=== PATIENT | female | born 1945 | race Caucasian/White ===

== ENCOUNTER 2022-10-10 08:28 | Emergency (ER) | payer MEDICARE, SELFPAY ==
[2022-10-10] VITALS (8 sets, daily range): BP systolic 123–175; BP diastolic 66–104; PULSE 62–89; RESP 16–20; TEMP 36.7–36.8; O2SAT 97–100; BMI 25.3
--- NOTE | 2022-10-10 | ECG_ITS ---
APPROVED REPORT Exam: Resting ECG HR:70 bpm ECG Measurements Heart Rate 70 AXES NV 124 P -9 QRSd 90 QRS 51 QT 407 T 63 QTc 428 Conclusion SINUS RHYTHM NORMAL ECG UNCONFIRMED REPORT Electronically signed by : Randall Barrientos MD 10/10/2022 13:57:56
--- NOTE | 2022-10-10 08:43 | PC.NURSE ---
Dr. King at bedside
--- NOTE | 2022-10-10 08:46 | PC.NURSE ---
Checking [employer] for flight check to ER.
--- NOTE | 2022-10-10 08:56 | HMH.EDGENADL ---
Discharge Plan Disposition Patient Disposition: Home, Self-Care Prescriptions Prescriptions: New ondansetron 4 mg tablet,disintegrating 4 mg PO Q6H PRN (Reason: nausea and vomiting) 5 Days Qty: 20 0RF Referrals Follow up/Referrals: Provider,Referral, MD [Primary Care Provider] - See instructions Activity Restrictions/Add. Instructions Additional Instructions/Restrictions: Your nausea vomiting and diarrhea is most likely from a viral cause. The lightheadedness you are describing which improved with IV fluids is most likely secondary dehydration from the viral cause. Please continue to keep yourself hydrated with glucose and sodium containing fluids like Gatorade or Powerade. The CAT scan of your head and your neck and the blood vessels in your head and your neck were unremarkable. Return with any recurrent or ongoing balance or neurologic concerns. Otherwise follow-up with primary care doctor as needed. Clinical Impressions Clinical Impression: Nausea vomiting and diarrhea, Orthostatic lightheadedness Discharge ED Provider: Julisa King General Adult HPI General Chief complaint: Dizziness Stated complaint: dizzy, vomiting Time Seen by Provider: 10/10/22 08:36 Mode of Arrival: Wheelchair Source of Information: Patient Limitations: No Limitations Description of Symptoms (Recalled from ER Triage Doc. by RN): pt to ed c/o dizziness and vomiting. pt states she woke up at approx 0600 this morning with symptoms. pt reports a past hx of vertigo and states this feels similar. History of Present Illness HPI narrative: 77-year-old female presenting with nausea vomiting diarrhea and lightheadedness. She described initially as dizziness and stated she had something similar when she lived in [place] that she was told was vertigo however she denies any changes in coordination vision or any rotary sensation today and describes it more as a lightheadedness. She states this occurred around the same time she had nausea vomiting and diarrhea. There is been no blood in her vomit or her stool. No melena. No significant abdominal pain chest pain shortness of breath fevers or any other concerns. She denies sick contacts. Related Data Previous Rx's Medication Instructions Recorded ondansetron 4 mg disintegrating 4 mg PO Q6H PRN nausea and 10/10/22 tablet vomiting 5 days #20 tabs Allergies Allergy/AdvReac Type Severity Reaction Status Date / Time No Known Allergies Allergy Verified 10/10/22 08:58 [facility] Disclaimer: The information contained in this section may have been updated after the patient was seen, as this information can be updated by other users. Social History Smoking Status: Never smoker alcohol intake: never current occupational status: other Travel in the last 8 weeks: None ROS Obtained: Yes All systems reviewed & no additional complaints except as documented Physical Exam General General appearance: alert Respiratory Respiratory exam: Present normal lung sounds bilaterally Cardiovascular Cardiovascular exam: Present regular rate; Absent tachycardia Abdominal Exam Abdominal exam: Present soft; Absent distention, tenderness, guarding, rebound or rigidity Neurological Exam Neurological exam: Present alert, oriented X3, CN II-XII intact, normal gait and other (Normal posterior circulation exam with finger-nose [id number] rapid alternating movements coordination is normal) Medical Decision Making Jadiel Inquiry Pt receiving controlled substance: No Jadiel was queried for this patient: No Vital Signs: 10/10/22 08:36 10/10/22 12:02 10/10/22 12:02 Temperature 98.2 F 98.0 F Temperature Source Oral Pulse Rate 78 Pulse Rate [Left Radial] 78 Respiratory Rate 19 16 Blood Pressure 123/73 Blood Pressure [Right Arm] 175/78 H Blood Pressure Mean [Right Arm] 110 02 Sat by Pulse Oximetry 99 Oxygen Delivery Method Room Air Room Air Room Air Lab Data Lab results
[2022-10-10 09:01] LABS: Basophils % 0.3 % (0.1-2.0); Eosinophils # 0.1 K/mm3 (0.0-0.4); Eosinophils % 1.6 % (0.1-12.0); Hematocrit 43.4 % (37.0-47.0); Hemoglobin 13.6 g/dL (12.2-16.2); Lymphocytes # 1.7 K/mm3 (0.7-4.5); Lymphocytes % 22.3 % (10-50); Mean Corpuscular HGB Conc 31.4 g/dL (31.8-35.4); Mean Corpuscular Hemoglobin 28.5 pg (27.0-31.2); Mean Corpuscular Volume 90.8 fl (81-99); Mean Platelet Volume 7.7 fl (7.4-10.4); Monocytes # 0.2 K/mm3 (0.1-1.0); Monocytes % 3.1 % (1.7-9.3); Neutrophils # 5.4 K/mm3 (1.8-7.8); Neutrophils % 72.7 % (37.0-80.0); Platelet Count 248 K/mm3 (142-424); Red Blood Count 4.78 M/mm3 (4.20-5.40); Red Cell Distribution Width 13.6 % (11.5-17.5); White Blood Count 7.4 K/mm3 (4.8-10.8)
[2022-10-10 09:06] LABS: Alanine Aminotransferase 17 U/L (12-78); Albumin/Globulin Ratio 1.1 (1.1-1.8); Alkaline Phosphatase 138 U/L (38-126); Anion Gap 11.3 mEq/L (5-15); Aspartate Amino Transferase 27 U/L (14-36); Bilirubin,Total 0.4 mg/dl (0.2-1.3); Blood Urea Nitrogen 15 mg/dl (7-17); Calcium 8.5 mg/dl (8.4-10.2); Carbon Dioxide 27 mmol/L (22.0-30.0); Chloride 107 mmol/L (98-107); Creatinine Clearance Estimated 48 mL/min (50-200); Estimated Glomerular Filt Rate 70 ml/min (>60); GFR (African American) 84 ML/MIN (>60); Globulin 3.6 g/dL (1.3-3.2); Glucose 115 mg/dl (74-100); Magnesium 1.9 mg/dl (1.6-2.3); Phosphorous 2.6 mg/dl (2.5-4.5); Potassium 3.3 mmoL/L (3.5-5.1); Sodium 142 mmol/L (136-145); Total Protein,Serum 7.6 g/dl (6.3-8.2)
--- NOTE | 2022-10-10 10:45 | CT_ITS ---
FINAL REPORT TECHNIQUE: Thin section axial CT with IV contrast supplemented with multiplanar reconstruction under CT angiogram protocol. 3-D reconstructions were performed. This study was performed with techniques to keep radiation doses as low as reasonably achievable (ALARA). Individualized dose reduction techniques using automated exposure control or adjustment of mA and/or kV according to the patient's size were employed. CLINICAL HISTORY: ataxia COMPARISON: None FINDINGS: The distal vertebral, basilar and distal internal carotid arteries have an unremarkable appearance. No aneurysm is seen. Major intracranial vessels are patent without significant stenosis. IMPRESSION: No evidence of significant stenosis, aneurysm or major branch occlusion. Reviewed, Interpreted and Dictated by Jasen Hsieh III, MD Transcribed by Jessica Montenegro Authenticated and [facility]
--- NOTE | 2022-10-10 10:45 | CT_ITS ---
FINAL REPORT CLINICAL HISTORY: ataxia COMPARISON: None FINDINGS: Axial images of the head were obtained without contrast. Coronal reformatted images were also obtained.This study was performed with techniques to keep radiation doses as low as reasonably achievable (ALARA). Individualized dose reduction techniques using automated exposure control or adjustment of mA and/or kV according to the patient's size were employed. There is no evidence of intracranial hemorrhage or mass. The ventricular size is within normal limits. There is no evidence of shift of the midline structures. No abnormal extra axial fluid collection is identified. No skull abnormality is seen on the bone window images. There is mild mucosal thickening in the maxillary sinuses and ethmoid air cells. IMPRESSION: No acute intracranial abnormality. Reviewed, Interpreted and Dictated by Jasen Hsieh III, MD Transcribed by Jessica Montenegro Authenticated and [facility]
--- NOTE | 2022-10-10 10:45 | CT_ITS ---
FINAL REPORT TECHNIQUE: Thin section axial CT with IV contrast supplemented with multiplanar reconstruction under CT angiogram protocol. This study was performed with techniques to keep radiation doses as low as reasonably achievable (ALARA). Individualized dose reduction techniques using automated exposure control or adjustment of mA and/or kV according to the patient''s size were employed. NASCET criteria was utilized during interpretation. CLINICAL HISTORY: ataxia COMPARISON: None FINDINGS: Aortic arch: Arch shows no significant narrowing. Great vessel origins are widely patent. Right carotid: No significant stenosis is seen of the cervical common or internal carotid artery. Left carotid: No significant stenosis is seen of the cervical common or internal carotid artery. Vertebral: Left vertebral artery is dominant. No significant stenosis is present. IMPRESSION: No evidence of significant stenosis or occlusion. Reviewed, Interpreted and Dictated by Jasen Hsieh III, MD Transcribed by Jessica Montenegro Authenticated and [facility]
--- NOTE | 2022-10-10 11:29 | PC.NURSE ---
pt up to restroom
== END 2022-10-10 12:18 | disposition home or self-care (01) ==
PROVIDERS: Emergency Provider Student in an Organized Health Care Education/Training Program
DX: R42 Dizziness and giddiness (principal); R11.2 Nausea with vomiting, unspecified
CPT/HCPCS: 70450; 70496; 70498; 80053; 83735; 84100; 85025; 93005; 96361; 96374; 99285; J2405; Q9967

== ENCOUNTER → 2022-12-14 12:53 | Outpatient (CLI) | payer MEDICARE, SELFPAY ==
--- NOTE | 2022-12-14 12:58 | XR_ITS ---
FINAL REPORT CLINICAL HISTORY: Nonspecific cough COMPARISON: None FINDINGS: Two views of the chest were obtained. The heart size and pulmonary vascularity are within normal limits. The mediastinum is normal. Mild right base opacities likely represent atelectasis or pneumonia. There is no pneumothorax. The bony thorax is intact. IMPRESSION: Moderate base opacities, likely atelectasis or pneumonia. Reviewed, Interpreted and Dictated by Jasen Hsieh III, MD Transcribed by Jessica Montenegro Authenticated and [facility]
[2022-12-14 18:22] LABS: Basophils % 0.3 % (0.1-2.0); Eosinophils # 0.1 K/mm3 (0.0-0.4); Eosinophils % 0.9 % (0.1-12.0); Hematocrit 40.3 % (37.0-47.0); Hemoglobin 13.6 g/dL (12.2-16.2); Lymphocytes # 1.7 K/mm3 (0.7-4.5); Lymphocytes % 23.3 % (10-50); Mean Corpuscular HGB Conc 33.8 g/dL (31.8-35.4); Mean Corpuscular Hemoglobin 30.7 pg (27.0-31.2); Mean Corpuscular Volume 90.7 fl (81-99); Mean Platelet Volume 9.2 fl (7.4-10.4); Monocytes # 0.4 K/mm3 (0.1-1.0); Monocytes % 5.8 % (1.7-9.3); Neutrophils # 5.1 K/mm3 (1.8-7.8); Neutrophils % 69.7 % (37.0-80.0); Platelet Count 444 K/mm3 (142-424); Red Blood Count 4.44 M/mm3 (4.20-5.40); Red Cell Distribution Width 12.8 % (11.5-17.5); White Blood Count 7.3 K/mm3 (4.8-10.8)
[2022-12-14 19:02] LABS: Alanine Aminotransferase 22 U/L (12-78); Albumin Level 3.8 g/dl (3.5-5.0); Albumin/Globulin Ratio 1.1 (1.1-1.8); Alkaline Phosphatase 146 U/L (38-126); Anion Gap 17.7 mEq/L (5-15); Aspartate Amino Transferase 29 U/L (14-36); Bilirubin,Total 0.7 mg/dl (0.2-1.3); Blood Urea Nitrogen 10 mg/dl (7-17); Calcium 8.7 mg/dl (8.4-10.2); Carbon Dioxide 26 mmol/L (22.0-30.0); Chloride 99 mmol/L (98-107); Chol/HDL Ratio 4.4 (1-3.5); Cholesterol 170 mg/dl (140-200); Estimated Glomerular Filt Rate 70 ml/min (>60); GFR (African American) 84 ML/MIN (>60); Globulin 3.4 g/dL (1.3-3.2); Glucose 97 mg/dl (74-100); HDL Cholesterol 39 mg/dl (40-60); Potassium 3.7 mmoL/L (3.5-5.1); Sodium 139 mmol/L (136-145); Total Protein,Serum 7.2 g/dl (6.3-8.2); Triglycerides 72 mg/dl (30-150); VLDL Cholesterol 14 mg/dL (0-40)
[2022-12-14 19:13] LABS: Direct LDL Cholesterol 102.41 mg/dL (100-129)
[2022-12-14 19:22] LABS: 25-OH Vitamin D, Total 30.4 ng/mL (30-100)
[2022-12-14 19:34] LABS: Thyroid Stimulating Hormone 1.53 uIU/mL (0.465-4.68)
== END ==
PROVIDERS: PCP Student in an Organized Health Care Education/Training Program; Visit Provider Student in an Organized Health Care Education/Training Program
DX: R05.9 Cough, unspecified (principal); E78.5 Hyperlipidemia, unspecified; R63.4 Abnormal weight loss; E55.9 Vitamin D deficiency, unspecified; R53.83 Other fatigue
CPT/HCPCS: 71046; 80053; 80061; 82306; 84443; 85025

== ENCOUNTER → 2022-12-14 23:25 | Outpatient (CLI) | payer MEDICARE, SELFPAY | PROVIDERS: PCP Student in an Organized Health Care Education/Training Program; Visit Provider Student in an Organized Health Care Education/Training Program | DX: E55.9 Vitamin D deficiency, unspecified (principal); E78.5 Hyperlipidemia, unspecified; R53.83 Other fatigue ==

== ENCOUNTER 2024-12-26 10:31 | Emergency (ER) | payer MEDICARE, SELFPAY ==
[2024-12-26 10:41] VITALS: BP 157/78; PULSE 120; RESP 18; TEMP 36.6; O2SAT 99; BMI 24.7
--- NOTE | 2024-12-26 10:45 | XR_ITS ---
FINAL REPORT CLINICAL HISTORY: pain in left ankle with standing COMPARISON: None FINDINGS: LEFT ANKLE Three views demonstrate no acute fracture or dislocation. The visualized joint spaces are normally aligned. The soft tissues are unremarkable. IMPRESSION: No acute bony abnormality. Reviewed, Interpreted and Dictated by Craig Lott MD Transcribed by Jessica Montenegro Authenticated and [facility]
[2024-12-26 11:00] VITALS: BP 139/75; PULSE 92; O2SAT 100
--- NOTE | 2024-12-26 11:27 | ED_ITS ---
<Statement entered by Hernandez Vázquez MD - 12/26/24 13:58> I was consulted by the ALLEGRA, and we discussed the complexity of the problems being addressed. I approve the treatment and management plan for this patient's care in the emergency department, thus performing a substantive portion of the medical decision making. Hernandez Vázquez MD Discharge Plan Disposition Patient Disposition: Home, Self-Care Prescriptions Prescriptions: No Action prednisone 20 mg tablet 20 mg PO BID 5 Days Qty: 10 0RF benzonatate 100 mg capsule 100 mg PO BID PRN (Reason: cough) Qty: 20 0RF levofloxacin 750 mg tablet 750 mg PO DAILY 7 Days Qty: 7 0RF Referrals Follow up/Referrals: Provider,Referral, [Primary Care Provider, Medical] - See instructions Activity Restrictions/Add. Instructions Additional Instructions/Restrictions: Ice, elevate, rest and compress your ankle. Your x-ray showed no acute fracture. If you can stay off the ankle for a few days then slowly try to increase your activity as tolerated. If pain persist or worsens please follow- up with your primary care physician. They may want to do further imaging and treatment. Clinical Impressions Clinical Impression: Ankle sprain Instructions Patient Instructions: Ankle Sprain Print Language Print Language: Kiswahili Discharge ED Provider: Hernandez Vázquez General Adult HPI General Chief complaint: PAIN Stated complaint: left ankle pain, swelling Time Seen by Provider: 12/26/24 10:41 Mode of Arrival: Ambulatory Source of Information: Patient Description of Symptoms (Recalled from ER Triage Doc. by RN): pt presents to ED with c/o left ankle. pt reports that she was attempting to get out of lawn chair last night and when she got up she placed weight on her ankle wrong. pt reports ice pack has helped with the pain. pt fall and no loc. History of Present Illness HPI narrative: 79-year-old female presents to the ED today with complaint of left ankle pain. She was getting up out of a chair and heard some crunching. She did put some ice on her ankle and that helped some but she is still having pain. She does have some obvious swelling but no bruising and she has some movement of her left ankle. Related Data Previous Rx's ?Medication ?Instructions ?Recorded benzonatate 100 mg capsule 100 mg PO BID PRN cough #20 caps 12/14/22 levofloxacin 750 mg tablet 750 mg PO DAILY 7 days #7 t abs 12/14/22 prednisone 20 mg tablet 20 mg PO BID 5 days #10 tabs 12/14/22 Allergies Allergy/AdvReac Type Severity Reaction Status Date / Time morphine Allergy Severe Anaphylaxis Verified 12/14/22 10:19 [facility] Disclaimer: The information contained in this section may have been updated after the patient was seen, as this information can be updated by other users. Medical History Endometriosis Nausea vomiting and diarrhea Orthostatic lightheadedness Surgical History No significant past surgical history Family History Other Diabetes Social History Smoking Status: Never smoker alcohol intake: never current occupational status: other Travel in the last 8 weeks?: None Have you lived/traveled outside [place] in past 30 days?: No Contact w/someone who lives/traveled outside [place] past 30 days?: No Exposure to someone with infectious disease in past 14 days?: No Do you have a fever (greater than 100.4 F or 38 C)?: No Have you tested positive for COVID-19?: No Exposed to someone with COVID-19 in past 14 days?: No Do you have a sore throat?: No Do you have a cough?: No Do you have any weakness?: No Do you have any diarrhea?: No Are you experiencing any unusual bleeding?: No Do you have any muscle aches/pain?: No Do you have any abdominal pain?: No Are you experiencing loss of taste or smell?: No Other Medical History Have you received the Pneumonia Vaccine: No ROS Obtained: Yes Systems reviewed as appropriate & no additional complaints except as documented Constitutional Constitutional: Reports as per HPI Physical Exam General General appearance: alert Head Head exam: normocephalic Eye Eye exam: Present PERRL and EOMI ENT ENT exam: Present normal oropharynx and mucous membranes moist Neck Neck exam: Present full ROM and trachea midline Respiratory Respiratory exam: Present normal lung sounds bilaterally Cardiovascular Cardiovascular exam: Present regular rate, normal rhythm, normal heart sounds, +S1 and +S2 Extremities Exam Extremities exam: Present tenderness, normal capillary refill and joint swelling Neurological Exam Neurological exam: Present alert and oriented X3 Skin Skin exam: Present warm and dry Medical Decision Making Medical Records Screening: Per USPSTF and CDC recommendations, given the prevalence of disease in our region, it is our hospital?s policy to screen for HIV and viral Hepatitis for all patients aged 18 and over and those with ongoing risk factors. Jadiel Inquiry Pt receiving controlled substance: No Jadiel was queried for this patient: No Vital Signs: 12/26/24 10:41 12/26/24 11:00 Temperature 97.8 F Temperature Source Oral Pulse Rate 92 H Pulse Rate [Left Radial] 120 H Respiratory Rate 18 Blood Pressure 139/75 Blood Pressure [Right Arm] 157/78 H Blood Pressure Mean [Right Arm] 104 02 Sat by Pulse Oximetry 99 100 Oxygen Delivery Method Room Air Orders (Tests/Meds): ORDERS Category Date Time Status Ankle XR - Left minimum 3 Views [XR ankle LT min 3V] Exams 12/26/24 10:45 Completed Stat HIV Combo Stat Lab 12/26/24 10:45 Ordered Hepatitis C Ab Qual. W/ RFX Stat Lab 12/26/24 10:45 Ordered Medical Decision Narrative: 79-year-old female presents today for complaint of left ankle pain. Patient is hemodynamically stable and afebrile. She was getting out of her chair and turned her ankle. Workup will contain left ankle x-ray. No labs are necessary today. Her x-ray initially read by myself showed no fracture. X-ray read by radiology showed no acute fracture. Patient was given Dave wrap and told to rest, ice, compression and elevate. She is to follow-up with her PCP for further treatment and management of her ankle pain if she has worsening pain or problems. Patient is safe for discharge home. Critical Care Critical Care Time Critical Care Time: No
[2024-12-26 11:37] VITALS: BP 145/67; PULSE 84; RESP 16; TEMP 36.9; O2SAT 99
[2024-12-26 11:38] VITALS: BP 145/97; PULSE 84; RESP 16; TEMP 36.9; O2SAT 99
--- NOTE | 2024-12-26 11:39 | PC.NURSE ---
angelito wrap applied to left ankle
== END 2024-12-26 11:40 | disposition home or self-care (01) ==
PROVIDERS: Emergency Provider Student in an Organized Health Care Education/Training Program
DX: S93.402A Sprain of unspecified ligament of left ankle, initial encounter (principal); X50.0XXA Overexertion from strenuous movement or load, initial encounter
CPT/HCPCS: 73610; 99283